=== PATIENT | female | born 1990 ===

== ENCOUNTER → 2023-06-29 09:45 | Outpatient (BNVA) | payer OTHER, SELFPAY | PROVIDERS: Visit Provider Physician Assistant ==

== ENCOUNTER 2023-07-08 10:35 | Outpatient (AMB) | payer OTHER, SELFPAY ==
--- NOTE | 2023-07-08 12:44 | MHC.OFFVISWM ---
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 BMI 44.3 HPI Details Start time: 12.35pm, End time: 1.20pm ?I spent 40 minutes speaking with the patient on the phone plus an additional 5 minutes reviewing and updating records for a total of 45 minutes HPI Comments History of Present Illness Details Previous weight loss efforts: exercise, intermittent fasting, Herbalife program Wakes up: 6am, Sleeps: 10pm-12am Breakfast: skips Lunch: 2pm (sandwich, fruit salad) Dinner: 6-7pm (pasta, lasagna, pizza) Snacks: 3-4pm (chips or cookies), 9-10pm (ice cream, candy) Exercise: Gym Fluids: Coffee/Tea: none, soda: Regular Coke occasionally, juice: none, ETOH: (1 per month) [facility] Medical History (Updated 07/08/23 @ 12:46 by Kiel Ross MD) Morbid obesity Family History (Updated 06/29/23 @ 10:31 by JILLIAN Lyons) Mother Hypertension Father Anxiety Daughter Epilepsy Daughter ADHD Daughter No problems noted. 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 Plan for lap sleeve gastrectomy. If diaphragmatic or ventral hernias are present at time of surgery, these will be repaired laparoscopically as well. Risks and complications were discussed in detail including possible conversion to an open procedure, anastomotic leak, bleeding requiring transfusion, small bowel obstruction, , DVT and pulmonary embolism, cardiac, or pulmonary complications, as terminal superintendent complications such as anastomotic ulcer, insufficient weight loss and vitamin deficiencies. I emphasized the importance of close follow-up, adherence to instructions and good communication. 2. Nutritional counseling. Start with one CELEBRATE REBUILD protein (buy at [facility]) shake (HALF scoop in 8oz low fat unsweetened almond milk each) at 7am-9am another Celebrate REBUILD shake with ONE scoop in 8oz almond milk at 10am-12pm, 2 protein bars (CELEBRATE protein bars, buy at [facility] [place] [facility]) at 1pm-3pm and 4pm-6pm, dinner at 7pm (10 forks of protein and 10 forks of salad/vegetables) AND one more protein bar after dinner at 9pm-11pm. So you do 2 protein shakes, 3 protein bars and one meal per day. Meal to include lean meat (beef, fish, pork, turkey, chicken), or upper sorbian yogurt, or egg whites, or beans with a salad with olive oil and fruits (berries, pears, apples, kiwi). Avoid salt, breads, potatoes, rice, pasta, desserts. 3. Each shake would be drunk slowly, like coffee in a period of 2 hours. 4. Cut each bar in 4 pieces and eat each piece in 30min ?to make each bar last 2 hours. 5. I emphasized the importance of measuring accurately the food portion and measure it when serving the food in plate 6. The meal portions include 10 full-size forks of meat and 10 full-size forks of salad. You always eat the meat portion but you can replace up to 5 forks for salad/vegetables with rice, potatoes or pasta, or a fruit ?if you like. The less you do it the better weight loss will be. 7. One full-size fork is what it can be scooped on the fork without falling aside and not what can be bit with the fork. Use regular forks like those you find in a typical restaurant. 8.? Please send me weight measurements as soon as possible and then once a week. Always include your diet and exercise plan. 9. Start treadmill with an incline of 2.0 and speed of 3.0. Increase incline by 1 every 3 min to a max incline of 8.0, stay 3min at 8.0 and then return to 2.0 and repeat same steps until calorie goal is met. Goal is to burn 2000 calories per week on exercise, which means either 300 calories daily, or 400 calories 5 days per week, or 500 calories 4 days per week, or 650 calories 3 days per week. 10. Alternatively purchase a stationary bike, elliptical or treadmill at home that can track calories. Let me know if you do so I can give you an exercise plan. 11.?It is important of avoiding and for at least 18 months postoperatively and has been discussed at the infosession. 12. Goal is to lose at least 1.5-2lbs per week 13. Goal to lose 10% of your weight before surgery, which is about 25lbs. Ultimate weight goal: 225lbs before surgery 14. Please follow the diet plan exactly without any change. If you don't like something about the plan or you feel hungry you need to communicate with me so I can help you revise the plan. You should not change the plan yourself. Orders: Orders Insulin Today E66.01 - Morbid (severe) obesity due to excess calories Lipid Panel Today E66.01 - Morbid (severe) obesity due to excess calories Vitamin B12 and Folate Today E66.01 - Morbid (severe) obesity due to excess calories Zinc Today E66.01 - Morbid (severe) obesity due to excess calories C Reactive Protein Today E66.01 - Morbid (severe) obesity due to excess calories Ferritin Today E66.01 - Morbid (severe) obesity due to excess calories H Pylori Breath Test Today E66.01 - Morbid (severe) obesity due to excess calories Vitamin D 25-OH Total Today E66.01 - Morbid (severe) obesity due to excess calories XR chest 2V Today E66.01 - Morbid (severe) obesity due to excess calories ECG 12 lead EKG Today E66.01 - Morbid (severe) obesity due to excess calories IRON PROFILE Today E66.01 - Morbid (severe) obesity due to excess calories Complete Blood Count Auto Diff Today E66.01 - Morbid (severe) obesity due to excess calories Comprehensive Met. Panel Today E66.01 - Morbid (severe) obesity due to excess calories Vitamin B1 Today E66.01 - Morbid (severe) obesity due to excess calories Vitamin A Today E66.01 - Morbid (severe) obesity due to excess calories PTHI Today E66.01 - Morbid (severe) obesity due to excess calories TSH reflex Free T4 Today E66.01 - Morbid (severe) obesity due to excess calories Hemoglobin A1c Today E66.01 - Morbid (severe) obesity due to excess calories US abdomen comp w elastography Today E66.01 - Morbid (severe) obesity due to excess calories FL upper GI w air Today E66.01 - Morbid (severe) obesity due to excess calories Referrals Nutrition/Dietitian Referral E66.01 - Morbid (severe) obesity due to excess calories Behavioral Health Referral E66.01 - Morbid (severe) obesity due to excess calories Telehealth Telehealth Location of provider rendering services: practice address Location of patient: address on file Patient Identification confirmed using: Name, : Yes Telehealth method: voice only Patient verbally consented to treatment: Yes Patient verbally consented to billing insurance company: Yes Patient informed of any privacy concerns related to visit: Yes Minutes spent on Phone/Video with Pt.: 45 Coding Level of Care Code Tele New Pt Level 4 (69932) Diagnoses Morbid obesity E66.01 Time Spent (min) 45
[2023-07-08 12:52] VITALS: BMI 44.3
== END 2023-07-08 13:21 | disposition home or self-care (01) ==
LOC: HO.HBS 10:35
PROVIDERS: Visit Provider Surgery
DX: E66.01 Morbid (severe) obesity due to excess calories (principal); Z68.41 Body mass index [BMI] 40.0-44.9, adult
CPT/HCPCS: 99204

== ENCOUNTER → 2023-07-08 10:35 | Outpatient (BNVA) | payer OTHER, SELFPAY | PROVIDERS: Visit Provider Surgery ==

== ENCOUNTER 2023-07-11 11:00 | Outpatient (REF) | payer OTHER, SELFPAY ==
--- NOTE | ~2023-07-11 | XR_ITS ---
EXAMINATION: XR CHEST CLINICAL INFORMATION: Morbid obesity COMPARISON: None available. TECHNIQUE: 2 views of the chest were obtained. FINDINGS: No significant abnormality is noted involving the heart, lungs, mediastinum, bony thorax or soft tissues. XR/XR chest 2V IMPRESSION: Unremarkable examination.
--- NOTE | 2023-07-11 11:05 | ECG_ITS ---
Test Reason : e66.01 Blood Pressure : / mmHG Vent. Rate : 054 BPM Atrial Rate : 054 BPM P-R Int : 168 ms QRS Dur : 088 ms QT Int : 426 ms P-R-T Axes : 034 000 016 degrees QTc Int : 403 ms Sinus bradycardia RSR' or QR pattern in V1 suggests right ventricular conduction delay Borderline ECG No previous ECGs available Referred By: Kiel Ross Electronically Signed By:RICHARD SHEPHERD MD
[2023-07-11 11:23] LABS: MANUAL DIFF FLAG NO
[2023-07-11 11:47] LABS: Basophils Percent Auto 0.4 % (0-2); Eosinophils Absolute Auto 0.1 X10*3/uL (0.0-0.4); Eosinophils Percent Auto 1.1 % (0-4); Hematocrit 42.2 % (37.0-47.0); Hemoglobin 13.8 g/dl (12.0-16.0); Imm Gran Abs Auto 0.03 X10*3/uL (0.00-0.03); Imm Gran Pct Auto 0.4 % (0.0-0.4); Lymphocytes Absolute Auto 1.9 X10*3/uL (1.2-4.9); Mean Corpuscular HGB Conc 32.7 g/dl (31.0-35.0); Mean Corpuscular Hemoglobin 29.2 pg (27.0-33.0); Mean Corpuscular Volume 89.4 fL (80.0-98.0); Mean Platelet Volume 9.2 fL (9.4-12.3); Monocytes Absolute Auto 0.5 X10*3/uL (0.1-1.2); Monocytes Percent Auto 6.2 % (2-11); Neutrophils Absolute Auto 5.8 x10*3/uL (2.0-8.3); Neutrophils Percent Auto 68.9 % (45-73); Platelet Count 272 X10*3/uL (160-400); Red Blood Count 4.72 X10*6/uL (4.20-5.50); Red Cell Distribution Width 12.6 % (11.0-16.0); White Blood Count 8.3 X10*3/uL (4.8-10.8)
[2023-07-11 12:30] LABS: Estimated Average Glucose 103 mg/dL; Hemoglobin A1c % 5.2 % (<6.0)
[2023-07-11 12:53] LABS: Alanine Aminotransferase 21 U/L (0-31); Alkaline Phosphatase 98 U/L (39-117); Anion Gap 12 (12-20); Aspartate Amino Transferase 18 U/L (5-31); Bilirubin Total 0.6 mg/dL (0.0-1.0); Blood Urea Nitrogen 14 mg/dL (9-16); C Reactive Protein 0.68 mg/dL (< or = 0.50); Calcium 8.9 mg/dL (8.4-10.2); Carbon Dioxide 24 mmol/L (22-29); Chloride 105 mmol/L (96-108); Cholesterol 163 mg/dL (<200); Estimated Glomerular Filt Rate > 60; Glucose Random 88 mg/dL (60-115); HDL Cholesterol 43 mg/dL (>40); Iron 110 mcg/dL (30-160); LDL Cholesterol Calculated 99 mg/dL (<100); Percent Iron Saturation 35 % (15-50); Potassium 3.9 mmol/L (3.3-5.1); Sodium 137 mmol/L (135-145); Total Iron Binding Capacity 314 mcg/dL (228-428); Total Protein 7.4 g/dL (6.5-8.0); Triglycerides 105 mg/dL (<150); Unsaturated Iron Binding 204 ug/dL
[2023-07-11 13:10] LABS: Ferritin 25 ng/mL (10-122); Insulin 6 uU/mL (2-29); TSH reflex Free T4 1.29 uIU/mL (0.32-4.0); Vitamin D 25-OH Total 13.3 ng/mL (>30)
[2023-07-11 13:19] LABS: Folate 11.1 ng/mL (> or = 4.0); Vitamin B12 408 pg/mL (200-900)
[2023-07-13 18:13] LABS: Calcium (PTHI) 8.9 mg/dL (8.6-10.2); PTHI 48 pg/mL (16-77)
[2023-07-13 23:53] LABS: Zinc 59 mcg/dL (60-130)
[2023-07-14 09:13] LABS: Vitamin A 36 mcg/dL (38-98)
[2023-07-17 15:19] LABS: Vitamin B1 6 nmol/L (8-30)
== END 2023-07-11 11:01 | disposition home or self-care (01) ==
LOC: HO.XRAY 11:00
PROVIDERS: Visit Provider Surgery
DX: E66.01 Morbid (severe) obesity due to excess calories (principal)
CPT/HCPCS: 36415; 71046; 80053; 80061; 82306; 82607; 82728; 82746; 83036; 83525; 83540; 83970; 84425; 84443; 84590; 84630; 85025; 86140; 93005

== ENCOUNTER → 2023-07-25 08:30 | Outpatient (BNVA) | payer OTHER, SELFPAY | PROVIDERS: Visit Provider Physician Assistant Surgical | DX: Z11.0 Encounter for screening for intestinal infectious diseases (principal) | CPT/HCPCS: 99211 ==

== ENCOUNTER 2023-07-25 13:57 | Outpatient (REF) | payer OTHER, SELFPAY ==
[2023-07-27 17:15] LABS: H Pylori Breath Test Positive (Negative)
== END 2023-07-25 13:58 | disposition home or self-care (01) ==
LOC: HO.LNP 13:57
PROVIDERS: Visit Provider Surgery
DX: E66.01 Morbid (severe) obesity due to excess calories (principal)
CPT/HCPCS: 83013

== ENCOUNTER 2023-08-08 08:18 | Outpatient (AMB) | payer OTHER, SELFPAY ==
--- OUTSIDE RECORDS SUMMARY | 2023-08-08 08:20 | XMS_ITS | Continuity of Care Document ---
Author Name Unknown Organization [facility] Address [address] [place] [address]- Care Team Providers Care Review Appraiser Name Role Phone Joshua Kearns DO Primary Care Physician [phone] [facility]): 03/25/22 - 04/24/22 [facility] [address] [place] [address]- Attending Physician: Shane Em Admitting Physician: Admtr, Shane Referring Physician: Admtr, Ar8 Allergies, Adverse Reactions, Alerts No Known Allergies Immunizations Given and Recorded Vaccine Date Status Refusal Reason tetanus/diphtheria/pertussis, acel(Tdap) 03/25/22 Given tetanus/diphtheria/pertussis, acel(Tdap) 02/18/11 Given SARS-CoV-2 (COVID-19) mRNA-1273 vaccine 03/08/22 R ecorded SARS-CoV-2 (COVID-19) mRNA-1273 vaccine 02/08/22 R ecorded influenza virus vaccine, inactivated 06/28/15 Give n Problem List Condition Effective Dates Status Health Status Inform ant Severe obesity(Confirmed) Active Social History Social History Type Response Tobacco Use: NONE. Sex
--- OUTSIDE RECORDS SUMMARY | 2023-08-08 08:20 | XMS_ITS | Continuity of Care Document ---
Author Name Unknown Organization [facility] ter Address [address] [place] [address]- Care Team Providers Care Artist Agent Name Role Phone En Quinteros DO Primary Care Physician Encounter [facility] Date(s): 11/07/19 - 11/07/[address] [address]- [facility] Attending Physician: Musa Whittington MD Allergies, Adverse Reactions, Alerts Substance Reaction Severity Status NKA Active Immunizations Given and Recorded Vaccine Date Status Refusal Reason influenza virus vaccine, inactivated 06/28/15 Give n tetanus/diphtheria/pertussis, acel(Tdap) 02/18/11 Given Medications ibuprofen 600 mg oral tablet 1 tablet = 600 mg, By Mouth, 3 times a day, # 15 tablet, 0 Refills, Maintenance Start Date: 04/22/13 Stop Date: 04/27/13 Status: Ordered Motrin 800 mg oral tablet 1 tablet = 800 mg, By Mouth, 3 times a day, PRN Pain, with food or milk, # 15 tablet, 0 Refills, Maintenance, Tablet Start Date: 02/26/10 Stop Date: 03/03/10 Status: Ordered penicillin V potassium 500 mg oral tablet 1 tablet = 500 mg, By Mouth, 4 times a day, # 40 tablet, 0 Refills, Maintenance, Tablet Start Date: 02/26/10 Stop Date: 03/08/10 Status: Ordered Percocet-5/325 325 mg-5 mg oral tablet 1 tablet, By Mouth, Every 4 hours, PRN Pain , Moderate, # 15 tablet, 0 Refills, Maintenance Start Date: 04/25/10 Status: Ordered Percocet-5/325 325 mg-5 mg oral tablet 1 tablet, By Mouth, Every 6 hours, # 12 tablet, 0 Refills, Maintenance Start Date: 04/09/10 Status: Ordered Polytrim 51960 u-1 mg/ml solution 1 drops, Eye, Left, Every 3 hours, # 10 mL, 0 Refills, Maintenance, Ophth Solution Start Date: 04/09/10 Stop Date: 04/16/10 Status: Ordered Tobradex 0.1%-0.3% suspension 1 drops, Eyes, Both, 4 times a day, # 5 mL, 0 Refills, Maintenance, Suspension Start Date: 04/25/10 Status: Ordered tramadol 50 mg oral tablet 1 tablet = 50 mg, By Mouth, Every 4 hours, PRN Pain, # 18 tablet, 0 Refills, Maintenance Start Date: 04/06/10 Stop Date: 04/09/10 Status: Ordered Vicodin 500 mg-5 mg oral tablet 1 tablet, By Mouth, Every 6 hours, PRN Pain , Severe, # 8 tablet, 0 Refills, Maintenance, Tablet Start Date: 02/26/10 Stop Date: 02/28/10 Status: Ordered Zofran 4 mg oral tablet 1 tablet = 4 mg, By Mouth, Every 8 hours, PRN Nausea & Vomiting, # 9 tablet, 0 Refills, Maintenance, 09/11/19 11:25:55 EST, Tablet, [id number], 108, kg, 09/11/19 8:24:27 EST, Dry Weight Start Date: 09/11/19 Stop Date: 09/14/19 Status: Ordered Social History Social History Type Response Tobacco Use: NONE. Sex
--- OUTSIDE RECORDS SUMMARY | 2023-08-08 08:20 | XMS_ITS | Continuity of Care Document ---
Author Name Unknown Organization [facility] Address [address] [place] [address]- Care Team Providers Care Enterprise Systems Architect Name Role Phone En Quinteros DO Primary Care Physician [phone] [facility]s): 06/11/20 - 07/11/20 [facility] [address] [place] [address]- [facility] Allergies, Adverse Reactions, Alerts Substance Reaction Severity [...] Maintenance Start Date: 04/09/10 Status: Ordered Polytrim 86856 u-1 mg/ml solution 1 drops, Eye, Left, [...]
--- OUTSIDE RECORDS SUMMARY | 2023-08-08 08:20 | XMS_ITS | Continuity of Care Document ---
Author Name Unknown Organization [facility] ter Address [address] [place] [address]- Care Team Providers Care Private Mortgage Banker Safe Name Role Phone Not on Staff, PCP Primary Care Physician Unavail able [facility] Date(s): 09/11/19 - 09/11/[address] [address]- [facility] Discharge Disposition: A-D/C Home Attending Physician: Nathaniel SCHNEIDER, Chico Quintanilla Admitting Physician: Chico Armstrong MD Referring Physician: Not on Staff, Referring MD Allergies, Adverse Reactions, Alerts Substance Reaction Severity Status NKA Active Immunizations Given and Recorded Vaccine Date Status Refusal Reason influenza virus vaccine, inactivated 06/28/15 Give n tetanus/diphtheria/pertussis, acel(Tdap) 02/18/11 Given Medications Augmentin 875 mg-125 mg oral tablet 1 tablet, By Mouth, Every 12 hours, for 10 days, # 20 tablet, 0 Refills, Acute 09/21/19 11:26:04 EST, 09/11/19 11:26:04 EST, Tablet, [id number], 108, kg, 09/11/19 8:24:27 EST, Dry Weight Start Date: 09/11/19 Stop Date: 09/21/19 Status: Ordered ibuprofen 600 mg oral tablet 1 tablet [...] Maintenance Start Date: 04/09/10 Status: Ordered Polytrim 41599 u-1 mg/ml solution 1 drops, Eye, Left, [...] Date: 09/11/19 Stop Date: 09/14/19 Status: Ordered Results Orders for Microbiology Reports Name Date Wet Prep 09/11/19 Microbiology Reports TEST:Wet Prep STATUS:Auth (Verified) BODY SITE: SOURCE:VAGINA COLLECTED DATE/TIME:09/11/19 9:10 AM Wet Prep SPECIMEN DESCRIPTION : VAGINAL SPECIMEN SPECIAL REQUESTS : NONE DIRECT EXAM : 2+ CLUE CELLS 1+ WHITE BLOOD CELLS NO YEAST OBSERVED NO TRICHOMONAS OBSERVED REPORT STATUS : FINAL 09/11/2019 Vital Signs Most recent to oldest [Reference Range]: 1 2 3 Weight 108 kg (09/11/19 8:24 AM) Oxygen Saturation [94-100 %] 96 % (09/11/19 11:48 AM) 98 % (09/11/19 10:00 AM) 99 % (09/11/19 8:27 AM) Pulse Rate [55-90 bpm] 62 bpm (09/11/19 11:48 AM) 71 bpm (09/11/19 10:00 AM) 85 bpm (09/11/19 8:27 AM) Blood Pressure [90-138/55-84 mm Hg] 129/83mm Hg (09/11/19 11:48 AM) 115/65mm Hg (09/11/19 10:00 AM) 122/71mm Hg (09/11/19 8:27 AM) Respiratory Rate [16-30 br/min] 18 br/min (09/11/19 11:48 AM) 18 br/min (09/11/19 10:00 AM) 17 br/min (09/11/19 8:27 AM) Temperature [96.8-100.4 DegF] 98.0 DegF (09/11/19 8:27 AM) Mode of Delivery (Oxygen) Room air (09/11/19 11:48 AM) Room air (09/11/19 10:00 AM) Nasal cannula (09/11/19 8:27 AM) Blood pressure sites Arm, left (09/11/19 11:48 AM) Arm, left (09/11/19 10:00 AM) Arm, left (09/11/19 8:27 AM) Temperature Route Oral (09/11/19 8:27 AM) Dry Weight 108 kg (09/11/19 8:24 AM)
--- OUTSIDE RECORDS SUMMARY | 2023-08-08 08:20 | XMS_ITS | Continuity of Care Document ---
Author Name Unknown Organization [facility] Address [address] [place] [address]- Care Team Providers Care Web Site Administrator Name Role Phone Not on Staff, PCP Primary Care Physician Unavail able [facility]s): 09/13/19 - 09/23/19 [facility] [address] [place] [address]- [facility] Attending Physician: Shane Em Admitting Physician: Shane Em Referring Physician: AdmtrShane Allergies, Adverse Reactions, Alerts Substance Reaction Severity [...] Maintenance Start Date: 04/09/10 Status: Ordered Polytrim 72704 u-1 mg/ml solution 1 drops, Eye, Left, [...] 0 Refills, Maintenance, 09/11/19 11:25:55 EST, Tablet, [id number], 108, kg, 09/11/19 8:24:27 EST, Dry Weight Start Date: 09/11/19 Stop Date: 09/14/19 Status: Ordered
--- OUTSIDE RECORDS SUMMARY | 2023-08-08 08:20 | XMS_ITS | Continuity of Care Document ---
Author Name Unknown Organization [facility] Address [address] [place] [address]- Care Team Providers Care Sample Checker Name Role Phone En Quinteros DO Primary Care Physician [phone] [facility] Date[facility]s): 04/21/21 - 05/21/21 [facility] [address] [place] [id number] Attending Physician: Shane Em Admitting Physician: Shane [...] Maintenance Start Date: 04/09/10 Status: Ordered Polytrim 20529 u-1 mg/ml solution 1 drops, Eye, Left, [...] 0 Refills, Maintenance, 09/11/19 11:25:55 EST, Tablet, [id number], 108, kg, 09/11/19 8:24:27 EST, Dry Weight Start Date: 09/11/19 Stop Date: 09/14/19 Status: Ordered Social History Social History Type Response Tobacco Use: NONE. Sex
--- OUTSIDE RECORDS SUMMARY | 2023-08-08 08:20 | XMS_ITS | Continuity of Care Document ---
Author Name Unknown Organization [facility] Address [address] [place] [address]- Care Team Providers Care Body Painter Name Role Phone En Quinteros DO Primary Care Physician [facility]s): 04/13/21 - 05/13/21 [facility] [address] [place] [id number] Allergies, Adverse Reactions, Alerts Substance Reaction Severity [...] Maintenance Start Date: 04/09/10 Status: Ordered Polytrim 03880 u-1 mg/ml solution 1 drops, Eye, Left, [...]
--- OUTSIDE RECORDS SUMMARY | 2023-08-08 08:20 | XMS_ITS | Continuity of Care Document ---
Author Name Unknown Organization [facility] Address [address] [place] [address]- Care Team Providers Care Nuclear Medicine Medical Director Name Role Phone En Quinteros DO Primary Care Physician [facility] Date(s): 02/04/22 - 03/06/22 [facility] [address] [place] [address] Attending Physician: Shane Em Admitting Physician: Shane Em Referring Physician: AdmtrShane Allergies, Adverse Reactions, Alerts No Known Allergies Immunizations Given and Recorded Vaccine Date Status Refusal Reason SARS-CoV-2 (COVID-19) mRNA-1273 vaccine 02/08/22 R ecorded influenza virus vaccine, inactivated 06/28/15 Give n tetanus/diphtheria/pertussis, acel(Tdap) 02/18/11 Given Problem List Condition Effective Dates Status Health Status Inform ant Severe obesity(Confirmed) Active Social History Social History Type Response Tobacco Use: NONE. Sex
--- OUTSIDE RECORDS SUMMARY | 2023-08-08 08:20 | XMS_ITS | Continuity of Care Document ---
Author Name Unknown Organization [facility] Address [address] [place] [address]- Care Team Providers Care Extrusion Manager Name Role Phone En Quinteros DO Primary Care Physician [phone] [facility]counter [facility] Date(s): 04/13/21 - 05/21/21 [facility] [address] [place] [id number] Attending Physician: Laci Laughlin MD Admitting Physician: Laci Laughlin MD Allergies, Adverse Reactions, Alerts Substance Reaction [...] Maintenance Start Date: 04/09/10 Status: Ordered Polytrim 53511 u-1 mg/ml solution 1 drops, Eye, Left, [...] 0 Refills, Maintenance, 09/11/19 11:25:55 EST, Tablet, [id number], 108, kg, 09/11/19 8:24:27 EST, Dry Weight Start Date: 09/11/19 Stop Date: 09/14/19 Status: Ordered Social History Social History Type Response Tobacco Use: NONE. Sex
--- OUTSIDE RECORDS SUMMARY | 2023-08-08 08:20 | XMS_ITS | Continuity of Care Document ---
Author Name Unknown Organization [facility] Address [address] [place] [address]- Care Team Providers Care Metal Furniture Panel Coverer Name Role Phone En Quinteros DO Primary Care Physician Encounter [facility] Date(s): 08/14/21 - 09/13/21 [facility] [address] [place] [id number] Allergies, Adverse Reactions, Alerts Substance Reaction [...] Maintenance Start Date: 04/09/10 Status: Ordered Polytrim 84641 u-1 mg/ml solution 1 drops, Eye, Left, [...]
--- OUTSIDE RECORDS SUMMARY | 2023-08-08 08:20 | XMS_ITS | Continuity of Care Document ---
Author Name Unknown Organization [facility] Address [address] [place] [address]- Care Team Providers Care Picking Tech Name Role Phone En Quinteros DO Primary Care Physician [phone] Encounter [facility] AC[facility] R [id number] Date(s): 10/31/19 - 11/10/19 [facility] [address] [place] [address]- [facility] Attending Physician: Shane Em Admitting Physician: AdmtrShane Referring Physician: AdmtrShane Allergies, Adverse Reactions, Alerts [...] Maintenance Start Date: 04/09/10 Status: Ordered Polytrim 51529 u-1 mg/ml solution 1 drops, Eye, Left, [...] 0 Refills, Maintenance, 09/11/19 11:25:55 EST, Tablet, [id number], 108, kg, 09/11/19 8:24:27 EST, Dry Weight Start Date: 09/11/19 Stop Date: 09/14/19 Status: Ordered Social History Social History Type Response Tobacco Use: NONE. Sex
--- OUTSIDE RECORDS SUMMARY | 2023-08-08 08:20 | XMS_ITS | Continuity of Care Document ---
Author Name Unknown Organization [facility] Address [address] [place] [address]- Care Team Providers Care Home Sales Consultant Name Role Phone En Quinteros DO Primary Care Physician [phone] Encounter [facility] Date(s): 11/24/21 - 01/21/22 [facility] [address] [place] [id number] Attending Physician: Not on Staff, Attending MD Allergies, Adverse Reactions, Alerts No Known Allergies [...] Maintenance Start Date: 04/09/10 Status: Ordered Polytrim 38517 u-1 mg/ml solution 1 drops, Eye, Left, [...]
--- OUTSIDE RECORDS SUMMARY | 2023-08-08 08:20 | XMS_ITS | Continuity of Care Document ---
Author Name Unknown Organization [facility] Address [address] [place] [address]- Care Team Providers Care Roll Icer Name Role Phone En Quinteros DO Primary Care Physician [phone] [facility] Date(s): 02/10/22 - 03/12/22 [facility] [address] [place] [address]- Allergies, Adverse Reactions, Alerts No Known Allergies [...]
--- OUTSIDE RECORDS SUMMARY | 2023-08-08 08:20 | XMS_ITS | Continuity of Care Document ---
Author Name Unknown Organization [facility] Address [address] [place] [address]- Care Team Providers Care Customer Service Driver Name Role Phone En Quinteros DO Primary Care Physician [phone] Encounter [facility] Date(s): 05/13/21 - 06/12/21 [facility] [address] [place] [id number] Allergies, Adverse Reactions, Alerts Substance Reaction Severity [...] Maintenance Start Date: 04/09/10 Status: Ordered Polytrim 36111 u-1 mg/ml solution 1 drops, Eye, Left, [...]
--- OUTSIDE RECORDS SUMMARY | 2023-08-08 08:21 | XMS_ITS | Continuity of Care Document ---
Author Name Unknown Organization [facility] Address [address] [place] [id number]- Care Team Providers Care Table Games Manager Name Role Phone En Quinteros DO Primary Care Physician Encounter [facility] Date(s): 06/11/20 - 07/11/20 [facility] [address] [place] [phone]- [facility] Allergies, Adverse Reactions, Alerts Substance Reaction Severity [...] Maintenance Start Date: 04/09/10 Status: Ordered Polytrim 12571 u-1 mg/ml solution 1 drops, Eye, Left, [...]
--- OUTSIDE RECORDS SUMMARY | 2023-08-08 08:21 | XMS_ITS | Continuity of Care Document ---
Author Name Unknown Organization [facility] Address [address] [place] [address]- Care Team Providers Care [employer] Executive Director Name Role Phone En Quinteros DO Primary Care Physician [phone] Encounter [facility] [place] Date(s): 06/03/20 - 07/03/20 [facility] [address] [place] [phone]- [facility] Allergies, Adverse Reactions, Alerts Substance Reaction Severity [...] 12 tablet, 0 Refills, Maintenance Start Date: 7/15/10 Status: Ordered Polytrim 10910 u-1 mg/ml solution 1 drops, Eye, Left, [...]
--- OUTSIDE RECORDS SUMMARY | 2023-08-08 08:21 | XMS_ITS | Continuity of Care Document ---
Author Name Unknown Organization [facility] Address [address] [place] [address]- Care Team Providers Care Fixture Designer Name Role Phone En Quinteros DO Primary Care Physician Encounter [facility] [place] Date(s): 12/03/20 - 01/02/21 [facility] [address] [place] [phone]- Allergies, Adverse Reactions, Alerts Substance Reaction Severity [...] Maintenance Start Date: 7/15/10 Status: Ordered Polytrim 01589 u-1 mg/ml solution 1 drops, Eye, Left, [...]
--- NOTE | 2023-08-08 09:32 | MHC.OFFVISWM ---
Intake VS Expanded 08/08/23 09:43 Height 5 ft 3 in Weight 243 lb 2 oz BMI 43.1 Body Fat % 56 Body Fat Mass 136.1 Fat Free Mass 107 Visceral Fat Rating 24 Body Water % 30.2 Body Water Mass 73.4 Basal Metabolic Rate/Score 1,403 Intake Visit Reasons: TV Follow Up SWL - 1ST Allergies No Known Allergies Allergy (Verified 07/08/23 12:44) HPI TV Follow Up SWL - 1ST HPI Details Start time: 9.31am, End time: 9.51am ?I spent 15 minutes speaking with the patient on the phone plus an additional 5 minutes reviewing and updating records for a total of 20 minutes HPI Comments History of Present Illness Details Overall weight loss: 7lbs, or 2.43% TBWL Is doing 2 Celebrate Rebuild shakes and one meal Exercise: home exercise videos [facility] Medical History (Updated 08/04/23 @ 21:31 by Kiel Ross MD) Morbid obesity Family History (Updated 06/29/23 @ 10:31 by JILLIAN Lyons) Mother Hypertension Father Anxiety Daughter Epilepsy Daughter ADHD Daughter No problems noted. 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 Please change nutritional plan to one CELEBRATE REBUILD protein shake (HALF scoop in 8oz low fat unsweetened almond milk each) at 7am-9am another Celebrate REBUILD shake with ONE scoop in 8oz almond milk at 10am-12pm, 2 CELEBRATE protein bars at 1pm-3pm and 4pm-6pm, dinner at 7pm (10 forks of protein and 10 forks of salad/vegetables) AND one more protein bar after dinner at 9pm-11pm. So you do 2 protein shakes, 3 protein bars and one meal per day. Meal to include lean meat (beef, fish, pork, turkey, chicken), or martiniquais yogurt, or egg whites, or beans with a salad with olive oil and fruits (berries, pears, apples, kiwi). Avoid salt, breads, potatoes, rice, pasta, desserts. 2. Each shake would be drunk slowly, like coffee in a period of 2 hours. 3. Cut each bar in 4 pieces and eat each piece in 30min ?to make each bar last 2 hours. 4. I emphasized the importance of measuring accurately the food portion and measure it when serving the food in plate 5. The meal portions include 10 full-size forks of meat and 10 full-size forks of salad. You always eat the meat portion but you can replace up to 5 forks for salad/vegetables with rice, potatoes or pasta, or a fruit ?if you like. The less you do it the better weight loss will be. 6. One full-size fork is what it can be scooped on the fork without falling aside and not what can be bit with the fork. Use regular forks like those you find in a typical restaurant. 7. Send me daily a picture of your meal plate after you measure your portions but before you eat it. 8.? Please send me weight measurements weekly on Sundays 9. Continue the home exercise videos daily for 35-40 minutes. Make sure that they are as intensive as possible. 10. Please try to purchase a stationary bike, elliptical or treadmill at home that can track calories. Let me know if you do so I can give you an exercise plan. Telehealth Telehealth Location of provider rendering services: practice address Location of patient: address on file Patient Identification confirmed using: Name, : Yes Telehealth method: voice only Patient verbally consented to treatment: Yes Patient verbally consented to billing insurance company: Yes Patient informed of any privacy concerns related to visit: Yes Minutes spent on Phone/Video with Pt.: 20 Coding Level of Care Code Tele Est Pt Level 3 (88364) Diagnoses Morbid obesity E66.01 Time Spent (min) 20
[2023-08-08 09:43] VITALS: BMI 43.1
== END 2023-08-08 09:51 | disposition home or self-care (01) ==
LOC: HO.HBS 08:18
PROVIDERS: PCP Internal Medicine; Visit Provider Surgery
DX: E66.01 Morbid (severe) obesity due to excess calories (principal)
CPT/HCPCS: 99213

== ENCOUNTER → 2023-08-08 08:18 | Outpatient (BNVA) | payer OTHER, SELFPAY | PROVIDERS: PCP Internal Medicine; Visit Provider Surgery ==

== ENCOUNTER 2023-08-09 11:15 | Outpatient (AMB) | payer OTHER, SELFPAY ==
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
== END 2023-08-09 11:41 | disposition home or self-care (01) ==
LOC: HO.HBST 11:15
PROVIDERS: PCP Internal Medicine; Visit Provider Counselor Mental Health
DX: F43.20 Adjustment disorder, unspecified (principal); E66.01 Morbid (severe) obesity due to excess calories
CPT/HCPCS: 90791

== ENCOUNTER → 2023-08-09 11:15 | Outpatient (BNVA) | payer OTHER, SELFPAY | PROVIDERS: PCP Internal Medicine; Visit Provider Counselor Mental Health ==

== ENCOUNTER 2023-08-24 14:19 | Outpatient (AMB) | payer OTHER, SELFPAY ==
--- NOTE | 2023-08-24 14:12 | MHC.AMNUTRGE ---
Intake VS Expanded 08/24/23 14:15 Height 5 ft 3 in Weight 240 lb BMI 42.5 Intake Visit Reasons: VIDEO Initial Nutrition [facility] Online Marketing Director Required: No Allergies No Known Allergies Allergy (Verified 07/08/23 12:44) HPI Nutrition Presentation Reason for consult elevated BMI Diet Assmnt Details Pt reports she is doing well in the program. likes to do chicken, salmon and broccoli or spinach. learning to eat more vegetables Exercise: minimal but plans to do some exercises at home [facility] online classes: completed, reviewed Dietary counseling reduction Who buys your food self Who prepares/cooks your food self Meal frequency regular: breakfast (pancakes, eggs gamez etc ), lunch (burgers, sandwiches, pizza, hot pockets ), dinner (rice, beans, chicken, other meat ) and snacks (chocolate ) Lifestyle Eating out 1-3 times/week Food frequency Dairy: daily, Fruit: occasionally, Vegetables: occasionally (broccoli, spinach, corn ), Grains/pasta/breads/cereal (carbs): daily, Meats/poultry/fish (protein): daily, Meat substitutes/nuts/seeds/legumes: daily, Processed foods/meats: daily, Restaurants/fast foods: several times weekly, Desserts/sweets: several times weekly, Water: daily, Soda: never, Juice: never and Coffee: never Diagnosis Nutrition problem #1 overweight/obesity As related to (etiology) #1 excess energy intake and physical inactivity As evidenced by (sign/symptom) #1 high BMI Monitoring/Goals Nutrition problem monitoring total energy intake, level of knowledge/skill, total PRO intake, total CHO intake and weight Outcome progress progressing Learning/Education Readiness to learn good Stages of change action Educational materials provided Yes Most Recent Diabetes Results: Cholesterol 163 mg/dL (<200) 07/11/23 HDL Cholesterol 43 mg/dL (>40) 07/11/23 Triglycerides 105 mg/dL (<150) 07/11/23 Creatinine 0.83 mg/dL (0.5-1.4) 07/11/23 Blood Urea Nitrogen 14 mg/dL (9-16) 07/11/23 Sodium 137 mmol/L (135-145) 07/11/23 Potassium 3.9 mmol/L (3.3-5.1) 07/11/23 Chloride 105 mmol/L (96-108) 07/11/23 Carbon Dioxide 24 mmol/L (22-29) 07/11/23 Calcium 8.9 mg/dL (8.4-10.2) 07/11/23 AST 18 U/L (5-31) 07/11/23 ALT 21 U/L (0-31) 07/11/23 Total Protein 7.4 g/dL (6.5-8.0) 07/11/23 Albumin 4.0 g/dL (3.5-5.0) 07/11/23 [facility] Medical History (Updated 08/09/23 @ 11:37 by Clare Dumont) Morbid obesity Family History (Updated 06/29/23 @ 10:31 by JILLIAN Lyons) Mother Hypertension Father Anxiety Daughter Epilepsy Daughter ADHD Daughter No problems noted. 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 Patient Instructions: Patient is cleared from a nutrition standpoint for bariatric surgery. Educational requirements have been completed. Reviewed vitamin supplementation and commitment to protein shake for several months post surgery. Encouraged communication with office as needed Telehealth Telehealth Location of provider rendering services: practice address Location of patient: address on file Patient Identification confirmed using: Name, : Yes Telehealth method: voice only Patient verbally consented to treatment: Yes Patient verbally consented to billing insurance company: Yes Patient informed of any privacy concerns related to visit: Yes Minutes spent on Phone/Video with Pt.: 25 Coding Level of Care Code Nutr Indiv Intake (87720) Diagnoses Morbid obesity E66.01 Time Spent (min) 25
[2023-08-24 14:15] VITALS: BMI 42.5
== END 2023-08-24 14:34 | disposition home or self-care (01) ==
LOC: HO.HBS 14:19
PROVIDERS: PCP Internal Medicine; Visit Provider Dietitian, Registered
DX: E66.01 Morbid (severe) obesity due to excess calories (principal)

== ENCOUNTER → 2023-08-24 14:19 | Outpatient (BNVA) | payer OTHER, SELFPAY | PROVIDERS: PCP Internal Medicine; Visit Provider Dietitian, Registered | DX: E66.01 Morbid (severe) obesity due to excess calories (principal); Z68.41 Body mass index [BMI] 40.0-44.9, adult | CPT/HCPCS: 97802 ==

== ENCOUNTER → 2023-08-29 08:14 | Outpatient (BNVA) | payer OTHER, SELFPAY | PROVIDERS: PCP Internal Medicine; Visit Provider Surgery ==

== ENCOUNTER 2023-08-31 10:01 | Outpatient (REF) | payer OTHER, SELFPAY | END 2023-08-31 10:02 | disposition home or self-care (01) | LOC: HO.XRAY 10:01 | PROVIDERS: PCP Internal Medicine; Visit Provider Surgery | DX: Z13.89 Encounter for screening for other disorder (principal) ==

== ENCOUNTER → 2023-08-31 10:04 | Outpatient (BNV) | payer OTHER, SELFPAY | PROVIDERS: PCP Internal Medicine; Visit Provider Radiology Diagnostic Radiology | DX: E66.01 Morbid (severe) obesity due to excess calories (principal); Z01.818 Encounter for other preprocedural examination | CPT/HCPCS: 74246 ==

== ENCOUNTER 2023-09-05 10:53 | Outpatient (REF) | payer OTHER, SELFPAY ==
--- NOTE | ~2023-09-05 | FL_ITS ---
EXAMINATION: XR FLUOROSCOPY UPPER GI WITH AIR CLINICAL INFORMATION: Preop evaluation prior to bariatric surgery COMPARISON: None TECHNIQUE: Fluoroscopic air contrast upper GI examination was performed utilizing standard techniques with thin and thick barium and effervescent granules. Numerous spot images were obtained. FINDINGS: Dual and single contrast images of the esophagus demonstrate normal caliber, contour, and mucosal pattern. No evidence of stricture, mass, or ulcerations identified. Esophageal peristalsis was normal. A small type I hiatal hernia is present. No significant gastroesophageal reflux was seen during the course of the examination and on reflux views. Dual contrast and single contrast images of the stomach demonstrated normal contour and mucosal pattern without evidence of mass, ulceration, or other abnormality. Contrast freely passed into the gastric antrum and duodenal bulb without delay. Single and air-contrast images of the duodenal bulb demonstrate no abnormality. The duodenal sweep has a normal appearance, course, and mucosal fold appearance. The imaged proximal jejunum has a normal fold pattern and caliber. FLUOROSCOPY TIME: 3 minutes 26 seconds Number of Spot Images: 9 Number of Cine: 7 DOSE AREA PRODUCT: 2520 uGy-m2 (microgray-meter squared) FL/FL upper GI w air IMPRESSION: Small type I hiatal hernia, otherwise unremarkable examination This procedure was performed by Tomasz Melendez PA-C, and supervised by Dr. Sauceda
--- NOTE | ~2023-09-05 | US_ITS ---
EXAMINATION: US COMPLETE ABDOMEN WITH LIVER ELASTOGRAPHY CLINICAL INFORMATION: Morbid (severe) obesity due to excess calories COMPARISON: None available. TECHNIQUE: Real-time imaging of the abdominal viscera. Noninvasive ultrasound liver fibrosis assessment is performed using Elaine ElastPQ point quantification shear wave elastography (2D-SWE) with a C5-2 MHz transducer. Multiple elastography samples are obtained. Limited study due to patient body habitus. Optimal elastography attempted. FINDINGS: PANCREAS: Normal. The visualized pancreatic head and body are normal in appearance. The remainder of the pancreas is obscured from visualization by the overlying bowel gas. ABDOMINAL AORTA: The mid and distal aortic segments are normal in caliber. The proximal abdominal aorta is obscured by bowel gas. INFERIOR VENA CAVA: Visualized portions are normal. LIVER: Normal. The liver demonstrates normal size and contour. There is slight increase in echogenicity of the liver parenchyma. No focal lesion or intrahepatic biliary duct dilatation. The right lobe measures 14.3 cm in length. The left lobe measures 9.2 cm in length. Portal flow is hepatopedal Shear wave liver elastography median stiffness is 1.39 m/s (reference: normal median stiffness is 1.3 m/s or less). IQR/median stiffness to assess sampling precision is 0.14 (reference: good quality data set is IQR/median stiffness of 0.15 or less). GALLBLADDER: Normal. The gallbladder is physiologically distended without evidence of stones, sludge, polyps, wall thickening or pericholecystic fluid. No sonographic Do's sign. COMMON BILE DUCT: Normal in caliber measuring 0.3 cm in diameter. RIGHT KIDNEY: Normal. No hydronephrosis. No renal calculi or focal parenchymal lesions. The kidney measures 12.9 cm in maximum dimension. LEFT KIDNEY: Normal. No hydronephrosis. No renal calculi or focal parenchymal lesions. The kidney measures 11.7 cm in maximum dimension. SPLEEN: Normal. The spleen measures 11.8 cm in maximum dimension. FREE FLUID: None. US/US abdomen comp w elastography IMPRESSION: 1. Mild increased echogenicity of the liver parenchyma which can be seen with hepatic steatosis. 2. Liver elastography: In the absence of other known clinical signs, this study rules out compensated advanced chronic liver disease. Good quality data set. No prior studies available for comparison. REFERENCE: Society of Radiologists in Ultrasound Liver Stiffness Thresholds (2020): LIVER STIFFNESS THRESHOLDS: *Liver Stiffness equal or less than 1.3 m/s: High probability of being normal. *Liver Stiffness less than 1.7 m/s: In the absence of other known clinical signs, rules out compensated advanced chronic liver disease. *Liver Stiffness 1.7-2.1 m/s: Suggestive of compensated advanced chronic liver disease but need further test for confirmation. *Liver Stiffness over 2.1 m/s: Rules in compensated advanced chronic liver disease. *Liver Stiffness over 2.4 m/s: Suggestive of clinically significant portal hypertension. QUALITY OF DATA SET: *IQR/Median value equal or less than 0.15 implies a quality data set. *IQR/Median value over 0.15 implies a poor quality data set. SIGNIFICANT CHANGE FROM PRIOR EXAM: Significant change if liver stiffness measurement is 10% or greater from prior exam. OTHER CONSIDERATIONS: The stage of liver fibrosis may be overestimated in the setting of acute hepatitis, liver inflammation, elevated liver function tests, hepatic vascular congestion, obstructive cholestasis, non-fasting state, and infiltrative diseases such as amyloidosis and lymphoma. In some patients with NAFLD, the liver stiffness thresholds for compensated advanced chronic liver disease may be lower. In causes other than viral hepatitis and NAFLD, liver stiffness thresholds are not well established.
== END 2023-09-05 10:54 | disposition home or self-care (01) ==
LOC: HO.US 10:53
PROVIDERS: PCP Internal Medicine; Visit Provider Surgery
DX: E66.01 Morbid (severe) obesity due to excess calories (principal)
CPT/HCPCS: 74246; 76705; 76981

== ENCOUNTER 2023-09-06 08:37 | Outpatient (REF) | payer OTHER, SELFPAY ==
[2023-09-08 15:29] LABS: H Pylori Breath Test Positive (Negative)
== END 2023-09-06 08:38 | disposition home or self-care (01) ==
LOC: HO.LNP 08:37
PROVIDERS: PCP Internal Medicine; Visit Provider Physician Assistant Surgical
DX: Z11.2 Encounter for screening for other bacterial diseases (principal)
CPT/HCPCS: 83013; 99211

== ENCOUNTER 2023-10-19 12:40 | Outpatient (REF) | payer OTHER, SELFPAY ==
[2023-10-20 13:41] LABS: H Pylori Breath Test Negative (Negative)
== END 2023-10-19 12:41 | disposition home or self-care (01) ==
LOC: HO.LNP 12:40
PROVIDERS: PCP Internal Medicine; Visit Provider Physician Assistant Surgical
DX: Z01.818 Encounter for other preprocedural examination (principal)
CPT/HCPCS: 83013; 99211

== ENCOUNTER 2023-10-24 08:10 | Outpatient (AMB) | payer OTHER, SELFPAY ==
--- NOTE | 2023-10-24 13:40 | A.OFFVIS_ITS ---
Intake VS Expanded 10/24/23 13:49 Height 5 ft 3 in Weight 238 lb 6 oz BMI 42.2 Body Fat % 54.7 Body Fat Mass 130.5 Fat Free Mass 108 Visceral Fat Rating 23 Body Water % 31.1 Body Water Mass 74.2 Basal Metabolic Rate/Score 1,421 Intake Visit Reasons: TV Follow Up SWL Allergies No Known Allergies Allergy (Verified 07/08/23 12:44) HPI TV Follow Up SWL HPI Details Start time: 1.30pm, End time: 1.58pm ?I spent 23 minutes speaking with the patient on the phone plus an additional 5 minutes reviewing and updating records for a total of 28 minutes HPI Comments History of Present Illness Details Overall weight loss: 11.6lbs, or 4.64% TBWL Is doing 2 protein shakes, protein bars and one meal (8 forks of protein and 8 forks of salad or vegetables) Exercise: walking outside [facility] Medical History (Updated 08/09/23 @ 11:37 by Clare Dumont) Morbid obesity Family History (Updated 06/29/23 @ 10:31 by JILLIAN Lyons) Mother Hypertension Father Anxiety Daughter Epilepsy Daughter ADHD Daughter No problems noted. 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 Continue same nutritional plan of 2 Celebrate Rebuild protein shakes (1 scoop in 8oz almond milk), 2 Celebrate protein bars and one meal (8 forks of protein and 8 forks of salad or vegetables) 2. Please send a picture of your plate after you measure it and before you eat it 3. Please buy a stationary bike at home or join a Gym as soon as possible. Please let me know what you decide so I can give you an exercise plan.Goal is to burn 2000 calories per week on exercise, which means either 300 calories daily, or 400 calories 5 days per week, or 500 calories 4 days per week, or 650 calories 3 days per week. 4. Continue to send me weight measurements weekly on Sundays Telehealth Telehealth Location of provider rendering services: practice address Location of patient: address on file Patient Identification confirmed using: Name, : Yes Telehealth method: voice only Patient verbally consented to treatment: Yes Patient verbally consented to billing insurance company: Yes Patient informed of any privacy concerns related to visit: Yes Minutes spent on Phone/Video with Pt.: 28 Coding Level of Care Code Tele Est Pt Level 3 (43488) Diagnoses Morbid obesity E66.01 Time Spent (min) 28
[2023-10-24 13:49] VITALS: BMI 42.2
== END 2023-10-24 13:59 | disposition home or self-care (01) ==
LOC: HO.HBS 08:10
PROVIDERS: PCP Internal Medicine; Visit Provider Surgery
DX: E66.01 Morbid (severe) obesity due to excess calories (principal)
CPT/HCPCS: 99213

== ENCOUNTER → 2023-10-24 08:10 | Outpatient (BNVA) | payer OTHER, SELFPAY | PROVIDERS: PCP Internal Medicine; Visit Provider Surgery ==